=== PATIENT | female | born 1995 | race Caucasian/White ===

== ENCOUNTER 2021-05-27 09:29 | Emergency (ER) | payer BC, MEDICAID, OTHER ==
[2021-05-27 09:49] VITALS: RESP 18; TEMP 98
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
[2021-05-27 11:19] VITALS: BP 125/89; PULSE 70
== END 2021-05-27 11:19 | disposition home or self-care (01) ==
LOC: EC 09:29
DX: S00.83XA Contusion of other part of head, initial encounter (principal); V49.59XA Passenger injured in collision with other motor vehicles in traffic accident, initial encounter; Y92.410 Unspecified street and highway as the place of occurrence of the external cause
CPT/HCPCS: 70450; 99284

== ENCOUNTER → 2021-06-18 | Outpatient (CLI) | payer OTHER ==
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
== END | disposition home or self-care (01) ==
LOC: RADCTMAIN 11:45
PROVIDERS: ATTEND Emergency Medicine
DX: M54.2 Cervicalgia (principal); S19.9XXA Unspecified injury of neck, initial encounter; S29.9XXA Unspecified injury of thorax, initial encounter
CPT/HCPCS: 72072; 72125

== ENCOUNTER → 2021-08-18 | Outpatient (CLI) | payer OTHER ==
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
== END | disposition home or self-care (01) ==
LOC: RADMRIMAIN 16:34
PROVIDERS: ATTEND Emergency Medicine
DX: S13.4XXD Sprain of ligaments of cervical spine, subsequent encounter (principal); S23.3XXD Sprain of ligaments of thoracic spine, subsequent encounter; V89.2XXD Person injured in unspecified motor-vehicle accident, traffic, subsequent encounter
CPT/HCPCS: 72141